=== PATIENT | female | born 1950 | race Caucasian/White ===

== ENCOUNTER → 2016-08-01 | Outpatient (CLI) | payer OTHER, MEDICARE ==
[~2016-08-01] MED LIST: B-COCAP2 PO; CALC600T37 PO; ESTR1CRE; FLNIN NAE; MULT-506 PO; Magnesium PO; Vitamin D3 PO; Zinc PO
== END | disposition home or self-care (01) ==
LOC: C.PAPS 11:55
PROVIDERS: ATTEND Obstetrics & Gynecology
DX: Z01.419 Encounter for gynecological examination (general) (routine) without abnormal findings (principal); R87.610 Atypical squamous cells of undetermined significance on cytologic smear of cervix (ASC-US)

== ENCOUNTER → 2017-03-17 | Outpatient (CLI) | payer OTHER, MEDICARE ==
[2017-03-17 10:58] LABS: BASO % 0.4 %; BASO ABS # 0.02 K/uL (0-0.2); COMPLETE YES; EOS % 4.6 %; HEMATOCRIT 41.4 % (37-47); IG% 0.2 %; LYMPH % 31.1 %; LYMPH ABS # 1.48 K/uL (1.2-3.4); MEAN CELL VOLUME 91.6 fL (80-100); MEAN CORPUSCULAR HEMOGLOBIN 31.2 pg (25-34); MEAN CORPUSCULAR HGB CONC 34.1 g/dl (32-36); MEAN PLATELET VOLUME 9.3 fL (7.4-10.4); MONO % 8.2 %; NEUT % 55.5 %; PLATELET COUNT 270 K/uL (130-400); RED BLOOD COUNT 4.52 M/uL (4.2-5.4); WHITE BLOOD COUNT 4.76 K/uL (4.8-10.8)
[2017-03-17 13:54] LABS: ALB/GLOB RATIO 1.1 (0.9-2); ALT/SGPT 33 U/L (12-78); AST/SGOT 23 U/L (15-37); BLOOD UREA NITROGEN 12 mg/dl (7-18); BUN/CREATININE RATIO 14.7 (10-20); CALCIUM 9.6 mg/dl (8.5-10.1); CARBON DIOXIDE 28 mmol/L (21-32); CHLORIDE 105 mmol/L (98-107); CREATININE 0.81 mg/dl (0.60-1.20); GLUCOSE 95 mg/dl (70-99); POTASSIUM 4.5 mmol/L (3.5-5.1); SODIUM 138 mmol/L (136-145)
[2017-03-17 14:04] LABS: ALKALINE PHOSPHATASE 70 U/L (45-117)
[2017-03-21 19:10] LABS: ALBUMIN 4.2 G/DL (3.8-4.8); FREE KAPPA 13.3 MG/L (3.3-19.4); FREE KAPPA/LAMBDA RATIO 0.89 (0.26-1.65); FREE LAMBDA 14.9 MG/L (5.7-26.3); GAMMA GLOBULIN 1.1 G/DL (0.8-1.7); IMMUNOFIXATION IGA SERUM 119 MG/DL (81-463); IMMUNOFIXATION IGG SERUM 1211 MG/DL (694-1618); IMMUNOFIXATION IGM SERUM 163 MG/DL (48-271); MONOCLONAL PROTEIN BAND 1 0.7 G/DL (NOT DETECTED)
== END | disposition home or self-care (01) ==
LOC: C.LABBC 09:09
PROVIDERS: ATTEND Internal Medicine Hematology & Oncology
DX: D47.2 Monoclonal gammopathy (principal)

== ENCOUNTER → 2017-06-06 | Outpatient (CLI) | payer OTHER, MEDICARE ==
--- NOTE | 2017-06-09 08:13 | MAMMOGRAPHY REPORT ---
BILATERAL DIGITAL SCREENING MAMMOGRAM TOMOSYNTHESIS WITH CAD: 06/06/2017 CLINICAL HISTORY: Routine screening. Patient has no complaints. TECHNIQUE: Breast tomosynthesis in addition to standard 2D mammography was performed. Current study was also evaluated with a Computer Aided Detection (CAD) system. COMPARISON: Comparison is made to exams dated: 04/01/2016 mammogram, 03/31/2015 mammogram, 03/25/2014 ma mmogram, 03/20/2013 mammogram, 02/13/2012 mammogram, and 02/07/2012 mammogram - [facility] ter. BREAST COMPOSITION: There are scattered areas of fibroglandular density in both breasts. FINDINGS: The parenchymal pattern is unchanged. No developing mass, architectural distortion or clus ter of suspicious microcalcifications is seen in either breast. IMPRESSION: ACR BI-RADS CATEGORY 2: BENIGN There is no mammographic evidence of malignancy. A 1 year screening mammogram is recommended. The pa tient will receive written notification of the results. Approximately 10% of breast cancers are not detected with mammography. A negative mammographic report should not delay biopsy if a clinically suggestive mass is present. Imelda England M.D. ay/:06/06/2017 15:36:18 Position Classification Manager: Elizabet Moulton, [facility] letter sent: Normal 1/2 BI-RADS Code: ACR BI-RADS Category 2: Benign
== END | disposition home or self-care (01) ==
LOC: C.MAMM 13:23
PROVIDERS: ATTEND Obstetrics & Gynecology
DX: Z12.31 Encounter for screening mammogram for malignant neoplasm of breast (principal)

== ENCOUNTER → 2017-10-05 | Outpatient (CLI) | payer OTHER, MEDICARE | END | disposition home or self-care (01) | LOC: C.PAPS 08:18 | PROVIDERS: ATTEND Obstetrics & Gynecology | DX: Z91.89 Other specified personal risk factors, not elsewhere classified (principal); N89.3 Dysplasia of vagina, unspecified; N90.3 Dysplasia of vulva, unspecified ==

== ENCOUNTER 2022-11-05 07:22 | Inpatient (IN) ==
[2022-11-05] MEDS ORDERED: SODIUM CHLORIDE 0.9% 1000ML 1,000 ML IV STA (08:02)
[2022-11-05 08:25] LABS: Basophils # (auto) 0.04 K/uL (0-0.2); Basophils % (auto) 0.4 %; Eosinophils # (auto) 0.03 K/uL (0-0.50); Eosinophils % (auto) 0.3 %; Hemoglobin 13.9 g/dl (12.0-16.0); Immature Granulocytes # (auto) 0.03 K/uL (0.01-0.20); Immature Granulocytes % (auto) 0.3 %; Lymphocytes # (auto) 0.84 K/uL (1.2-3.4); Mean Corpuscular Hemoglobin 31.2 pg (25.0-34.0); Mean Corpuscular Hgb Conc 33.9 g/dL (32.0-36.0); Mean Corpuscular Volume 92.1 fL (80.0-100.0); Mean Platelet Volume 9.3 fL (9.4-12.4); Monocytes # (auto) 0.28 K/uL (0.11-0.59); Monocytes % (auto) 2.7 %; Neutrophils # (auto) 9.28 K/uL (1.40-6.50); Neutrophils % (auto) 88.3 %; Platelet Count 269 K/uL (130-400); RDW Coefficient of Variation 12.7 % (11.5-14.5); RDW Standard Deviation 43.4 fL (36.4-46.3); Red Blood Count 4.45 M/uL (4.20-5.40)
[2022-11-05 08:31] LABS: Albumin Globulin Ratio 1.4 (0.9-2); Albumin Level 4.3 gm/dl (3.4-5.0); BUN Creatinine Ratio 20.7 (10-20); Bilirubin,Total 0.7 mg/dl (0.2-1.0); Calcium 9.4 mg/dl (8.6-10.3); Creatinine Clr Calc Pharmacy 55.8 ml/min; Est GFR (African American) 82.9 ml/min; Est GFR (Non-African American) 71.5 ml/min; Total Protein 7.3 gm/dl (6.0-8.3)
[2022-11-05] MEDS ORDERED: MoRPHine SULFATE 4 MG/ML 1 ML CARP\\VIAL IV STA (08:44)
[2022-11-05] MEDS ORDERED: ONDANSETRON INJ 2 MG/ML 2 ML VIAL IV STA ×2 (08:50→16:08)
--- NOTE | 2022-11-05 08:56 | Emergency Department Note ---
Impression & Plan Abdominal pain, Partial obstruction of small intestine ED Provider Note INFORMANT: Patient ED PROVIDER(S): Uche Nelson DO CHIEF COMPLAINT: Abdominal pain PLAN: Disposition: Admission Outpatient prescription management: none Discussion with: I spoke with the hospitalist, who will see the patient for admission/observation and further evaluation and consultation. MEDICAL DECISION MAKING: This is a 72-year-old female who presents to the ED with a chief complaint of abdominal pain. The patient states that her pain started at 205 this morning. She states that she had some associated nausea and dry heaves. The pain initially started in the epigastric area but now seems to be all over. She also complains of some mid back pain associated with her symptoms that started around the same time. The patient states that she is unable to move because the pain is so severe with movement. She states that she does have a history of diarrhea since May. She is scheduled to have a colonoscopy on Monday. Denies any fevers. No chest pains or shortness of breath. No urinary symptoms. Her vital signs reveal hypertension. Physical exam reveals mild diffuse abdominal tenderness. No palpable masses. No rebound lungs are clear. Heart is regular rate and rhythm. The rest of the exam was unremarkable. Denies any previous abdominal surgical procedures. The patient's CBC did not show leukocytosis or anemia. Chemistry panel showed no electrolyte abnormality. Normal kidney function. Normal liver function. Normal kidney function. Lipase was negative for pancreatitis troponin was negative. EKG shows normal sinus rhythm without ischemic change. Chest x-ray was negative for acute disease. CT scan of the abdomen pelvis shows a partial small bowel obstruction versus enteritis. The patient will be seen by the hospitalist for further evaluation and care Triage Nursing notes reviewed. Vital Signs: reviewed Prior /Outside records reviewed: [none] Differential diagnosis: Differential considered: pancreatitis, hepatitis, acute cholecystitis, AAA, UTI, pyelonephritis, kidney stones, appendicitis, diverticulitis, shingles, bowel obstruction, mesenteric ischemia, intussusception,hernia, bowel perforation other Diagnostics, as interpreted by me: 12 lead ECG: Normal sinus rhythm 72. No ST elevation. No PVCs. Normal QTc Cardiac Monitoring ordered: Normal sinus rhythm in the 70s Medical decision rules: [none] Imaging studies: CT scan of the abdomen pelvis: Partial small bowel obstruction. Chest x-ray: No acute disease. No pneumonia Procedures: none. Critical care: none. HPI: See MDM above. PAST MEDICAL HISTORY: See Below PAST SURGICAL HISTORY: See Below SOCIAL HISTORY: See Below HOME MEDICATIONS: See Below ALLERGIES: See Below VITALS: See Below PHYSICAL EXAMINATION: See MDM for positive findings otherwise unremarkable. CONSTITUTIONAL/VITAL SIGNS: Reviewed GENERAL:done as appropriate INTEGUMENTARY: done as appropriate HEAD: done as appropriate EYES: done as appropriate RESPIRATORY: done as appropriate CARDIOVASCULAR:done as appropriate GI/ABDOMEN:done as appropriate EXTREMITIES: done as appropriate NEUROLOGICAL: done as appropriate PSYCHIATRIC:done as appropriate MUSCULOSKELETAL:done as appropriate TRIAGE NURSING DOCUMENTATION REVIEWED. 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) Unsure what level dinorah is Surgical History H/O repair of rotator cuff LEFT H/O wisdom tooth extraction History of colonoscopy History of conization of cervix History of dilation and curettage History of removal of cyst History of tubal ligation Family History Grandmother (Maternal) Myocardial infarction Mother Carpal tunnel syndrome Diabetes H/O mitral valve replacement Father Emphysema, unspecified Family history of diverticulitis of colon Brother Prostate cancer Glaucoma Asthma Uncle Skin cancer paternal Uncle Diabetes Bladder cancer paternal Aunt Diabetes Other Heart disease Osteoporosis Denies family history of Ovarian cancer Clotting disorder Breast cancer Hypertension Stroke Social History Smoking Status: Former smoker Second Hand Exposure: Yes (HX GROWING UP); Hx Alcohol Use: Yes Alcohol type: beer Hx Substance Use: No Preferred Language: Bhutanese Communication Ability: Effective X Ray Operator Required: No Beliefs That Will Affect Care: None marital status: Current Living Situation: Spouse current occupational status: retired Feels Safe at Home: Yes Childhood Exposure to Second-Hand Smoke: No Assistive Devices: Glasses Allergies Allergies Allergy/AdvReac Type Severity Reaction Status Date / Time latex Allergy Unknown WITH Verified 10/31/22 08:11 PROLONGED USE - SKIN IRRITATION levofloxacin [From Levaquin] AdvReac Unknown THRUSH IN Verified 10/31/22 08:11 THE MOUTH Home Meds Home Medications Medication Instructions Recorded Confirmed fluticasone propionate 50 2 sprays intranasal UD PRN allergy 04/08/19 10/31/22 mcg/actuation nasal symptoms spray,suspension (Allergy Relief (fluticasone)) multivitamin (Daily Multi-Vitamin 1 tab PO QPM 04/08/19 10/31/22 tablet) calcium 600 mg capsule 600 mg PO BID 10/07/20 10/31/22 cholecalciferol (vitamin D3) 50 50 mcg PO QPM 10/07/20 10/31/22 mcg (2,000 unit) capsule (Vitamin D3) glucosamine-chondroitin 250 mg-200 1 tab PO QAM 10/07/20 10/31/22 mg tablet (Osteo Bi-Flex) lysine 1,000 mg tablet 1,000 mg PO QAM 10/07/20 10/31/22 turmeric 400 mg capsule 450 mg PO QAM 10/07/20 10/31/22 vitamin B complex 1 cap PO QPM 10/07/20 10/31/22 zinc 50 mg capsule 50 mg PO QPM 10/07/20 10/31/22 naproxen sodium 220 mg tablet 220 mg PO QAM 10/31/22 10/31/22 (Aleve) Previous Rx's Medication Instructions Recorded conjugated estrogens 0.625 mg/gram 0.625 mg vaginal Q2D #30 grams 07/20/22 vaginal cream (Premarin) sodium sul 1.479 gram-potas ch See Rx Instructions PO .COMPLEX 10/25/22 0.188 gram-magnes sul 0.225 gram #24 tabs tablet (Sutab) Results & Data (ED) Vital Signs Vital Signs - 24 hr 11/05/22 07:25 11/05/22 07:49 11/05/22 08:05 Temperature 36.6 C Temperature Source Temporal Artery Scan Pulse Rate 84 Pulse Rate [Apical] 70 Pulse Rhythm [Apical] Pulse Strength [Apical] Respiratory Rate 18 Respiratory Effort / Characteristics Respiratory Depth Respiratory Pattern Blood Pressure 159/87 H Blood Pressure [Right Arm] 157/89 H Blood Pressure Mean 111 Blood Pressure Mean [Right Arm] 111 Blood Pressure Position [Right Arm] Pulse Oximetry 96 90 92 Oxygen Delivery Method Room Air Room Air Oxygen Flow Rate Sepsis Recent Fever Within 48 Hours No Sepsis New/Unexplained Change in Mental Status N/A Sepsis Action Taken by Nursing No Action Required 11/05/22 10:07 11/05/22 11:03 Temperature Temperature Source Pulse Rate Pulse Rate [Apical] 79 77 Pulse Rhythm [Apical] Regular Pulse Strength [Apical] Normal Respiratory Rate 20 Respiratory Effort / Characteristics Non-Labored Spontaneous Respiratory Depth Normal Respiratory Pattern Regular Blood Pressure Blood Pressure [Right Arm] 157/93 H 137/86 Blood Pressure Mean Blood Pressure Mean [Right Arm] 114 103 Blood Pressure Position [Right Arm] Sitting Pulse Oximetry 97 95 Oxygen Delivery Method Nasal Cannula Nasal Cannula Oxygen Flow Rate 2 2 Sepsis Recent Fever Within 48 Hours Sepsis New/Unexplained Change in Mental Status Sepsis Action Taken by Nursing Laboratory Data 11/05/22 07:41 11/05/22 07:41 Lab Results 11/05/22 11/05/22 Range/Units 07:41 07:41 WBC 10.50 (4.8-10.8) K/ul RBC 4.45 (4.20-5.40) M/uL Hgb 13.9 (12.0-16.0) g/dl Hct 41.0 (37.0-47.0) % MCV 92.1 (80.0-100.0) fL MCH 31.2 (25.0-34.0) pg MCHC 33.9 (32.0-36.0) g/dL RDW Std Deviation 43.4 (36.4-46.3) fL RDW Coeff of Veronika 12.7 (11.5-14.5) % Plt Count 269 (130-400) K/uL MPV 9.3 L (9.4-12.4) fL Immature Gran % (Auto) 0.3 % Neut % (Auto) 88.3 % Lymph % (Auto) 8.0 % Franklin % (Auto) 2.7 % Eos % (Auto) 0.3 % Baso % (Auto) 0.4 % Neut # (Auto) 9.28 H (1.40-6.50) K/uL Lymph # (Auto) 0.84 L (1.2-3.4) K/uL Franklin # (Auto) 0.28 (0.11-0.59) K/uL Eos # (Auto) 0.03 (0-0.50) K/uL Baso # (Auto) 0.04 (0-0.2) K/uL Immature Gran # (Auto) 0.03 (0.01-0.20) K/uL Sodium 136 (136-145) mmol/L Potassium 4.0 (3.5-5.1) mmol/L Chloride 103 (98-107) mmol/L Carbon Dioxide 26 (21-32) mmol/L Anion Gap 7 (3-11) BUN 17 (6-23) mg/dl Creatinine 0.82 (0.6-1.2) mg/dl Est Cr Clr Drug Dosing 55.8 ml/min Est GFR ( Amer) 82.9 ml/min Est GFR (Non-Af Amer) 71.5 ml/min BUN/Creatinine Ratio 20.7 H (10-20) Glucose 142 H (70-99(Fasting)) mg/dl Calcium 9.4 (8.6-10.3) mg/dl Total Bilirubin 0.7 (0.2-1.0) mg/dl AST 21 (13-39) U/L ALT 20 (7-52) U/L Alkaline Phosphatase 57 (34-104) U/L Troponin I High Sens 6.8 (0-14) pg/ml Total Protein 7.3 (6.0-8.3) gm/dl Albumin 4.3 (3.4-5.0) gm/dl Globulin 3.0 (2.5-4.0) gm/dl Albumin/Globulin Ratio 1.4 (0.9-2) Lipase 18 (11-82) U/L Administered Medications Discontinued Medications Sodium Chloride (Nss 1000ml) 1,000 mls @ 999 mls/hr IV .Q1H1M STA Stop: 11/05/22 09:02 Last Infusion: 11/05/22 09:43 Dose: 0 mls/hr Documented By: Admin: 11/05/22 08:37 Dose: 999 mls/hr Documented By: ANN Ioversol (Optiray 350 100ml) 89 ml IV ONCE ONE Stop: 11/05/22 09:55 Last Admin: 11/05/22 09:56 Dose: 89 ml Documented By: ROJAS Morphine Sulfate (Morphine Sulfate 4 Mg/Ml 1 Ml Carp\Vial) 4 mg IV NOW STA Stop: 11/05/22 08:45 Last Admin: 11/05/22 08:48 Dose: 4 mg Documented By: ANN Ondansetron HCl (Ondansetron Inj 2 Mg/Ml 2 Ml Vial) 4 mg IV NOW STA Stop: 11/05/22 08:51 Last Admin: 11/05/22 08:52 Dose: 4 mg Documented By: ANN Imaging Data Radiologist's Impression: Abdomen/Pelvis CT 11/05/22 08:[address] WITH IV CONTRAST CT DOSE: 290.41 mGy.cm HISTORY: Acute generalized abdominal pain abd pain, epig diffuse TECHNIQUE: Multiaxial CT images of the abdomen and pelvis were performed following the IV administration of 89 cc of Optiray, A dose lowering technique was utilized adhering to the principles of ALARA. COMPARISON STUDY: Chest radiograph of same day FINDINGS: No acute process of the imaged lower chest. No pneumatosis or pneumoperitoneum. Unremarkable spleen, mildly atrophic pancreas, gallbladder and adrenal glands. Mild periportal edema with otherwise unremarkable appearance of the liver. Patent portal vein. Unremarkable kidneys. No hydronephrosis. Mild to moderate urinary bladder distention. Probable uterine fibroid, 1.5 cm within the fundus. No adnexal mass lesions. Atherosclerosis of the aorta without aneurysm. Atherosclerotic plaque at the origin of the inferior mesenteric artery. Indeterminate 1.2 cm soft tissue attenuating subcutaneous lesion of the left mons pubis. Colonic diverticulosis without acute diverticulitis. Normal appendix. Mildly di lated air and fluid-filled loops of small bowel measure up to 3 cm. Several loops of small bowel demonstrate circumferential wall thickening with interloop edema. Small volume of abdominal pelvic ascites. No discrete transition point identified. Initially, there are areas of mild large bowel wall thickening with partial distention. No acute fracture. Tarlov cyst of the upper sacrum. IMPRESSION: 1. Mild small bowel dilation with air-fluid levels, areas of circumferential wall thickening with interloop edema and small volume of abdominal pelvic ascites. No discrete transition point is identified. Constellation of findings suggestive of a partial small bowel obstruction versus a nonspecific enteritis. Close follow-up is recommended. 2. No pneumoperitoneum. 3. Colonic diverticulosis. 4. Normal appendix. 5. Additional findings as above. ACT 112: Negative or not required by law. The above report was generated using voice recognition software. It may contain grammatical, syntax or spelling errors. Electronically signed by: Antonio Julien M.D. 11/05/2022 10:37 AM Chest X-Ray 11/05/22 08:56 XR chest 1V portable HISTORY: 72 years-old Female abd pain . Acute chest and abdominal pain COMPARISON: Acute abdominal series radiographs 09/21/2015 TECHNIQUE: AP view of the chest FINDINGS: Cardiac mediastinal and hilar silhouettes are within normal limits. There is no pneumothorax, pleural effusion, airspace consolidation or pulmonary edema. Mild subsegmental bibasilar atelectasis versus scarring. Bones of the chest appear grossly intact. IMPRESSION: No acute process. ACT 112: Negative or not required by law. The above report was generated using voice recognition software. It may contain grammatical, syntax or spelling errors. Electronically signed by: Antonio Julien M.D. 11/05/2022 9:37 AM Discharge Plan Visit Data Chief Complaint: Abdominal Pain Stated Complaint: ABDOMINAL PAIN ED Provider: Uche Nelson Discharge Problem: Abdominal pain, Partial obstruction of small intestine Patient Disposition: Being Evaluated by Hospitalist Forms Stand Alone Forms: [facility] Prescriptions Prescriptions: No Action Premarin 0.625 mg/gram cream 0.625 mg PV Q2D Qty: 30 1RF Rx Instructions: Insert 1 gram vaginally twice weekly. Sutab 1.479-0.188- 0.225 gram tablet See Rx Instructions PO .COMPLEX Qty: 24 0RF Rx Instructions: TAKE FIRST DOSE AT 6 PM AND SECOND DOSE 6 HOURS PRIOR TO PROCEDURE BIN: [id number] PCN: CN GROUP: [id number] fluticasone propionate [Allergy Relief (fluticasone)] 50 mcg/actuation spray,suspension 2 sprays INTNAS UD PRN (Reason: allergy symptoms) multivitamin [Daily Multi-Vitamin] tablet 1 tab PO QPM cholecalciferol (vitamin D3) [Vitamin D3] 50 mcg (2,000 unit) Capsule 50 mcg PO QPM calcium 600 mg Capsule 600 mg PO BID lysine 1,000 mg Tablet 1,000 mg PO QAM vitamin B complex Capsule 1 cap PO QPM glucosamine-chondroitin [Osteo Bi-Flex] 250-200 mg Tablet 1 tab PO QAM zinc 50 mg Capsule 50 mg PO QPM turmeric 400 mg Capsule 450 mg PO QAM naproxen sodium [Aleve] 220 mg Tablet 220 mg PO QAM Referrals Referrals: Wiliam Harvey [Primary Care Provider] -
--- NOTE | 2022-11-05 09:38 | XRay Report ---
XR chest 1V portable HISTORY: 72 years-old Female abd pain . Acute chest and abdominal pain COMPARISON: Acute abdominal series radiographs 09/21/2015 TECHNIQUE: AP view of the chest FINDINGS: Cardiac mediastinal and hilar silhouettes are within normal limits. There is no pneumothorax, pleural effusion, airspace consolidation or pulmonary edema. Mild subsegmental bibasilar atelectasis versus scarring. Bones of the chest appear grossly intact. IMPRESSION: No acute process. ACT 112: Negative or not required by law. The above report was generated using voice recognition software. It may contain grammatical, syntax o r spelling errors. Electronically signed by: Antonio Julien M.D. 11/05/2022 9:37 AM
[2022-11-05] MEDS ORDERED: OPTIRAY 350 100ml IV ONE (09:54)
[2022-11-05 10:00] LABS: Troponin I High Sensitivity 6.8 pg/ml (0-14)
--- NOTE | 2022-11-05 10:39 | CT Scan Report ---
ABDOMEN AND PELVIS CT WITH IV CONTRAST CT DOSE: 290.41 mGy.cm HISTORY: Acute generalized abdominal pain abd pain, epig diffuse TECHNIQUE: Multiaxial CT images of the abdomen and pelvis were performed following the IV administrat ion of 89 cc of Optiray, A dose lowering technique was utilized adhering to the principles of ALARA. COMPARISON STUDY: Chest radiograph of same day FINDINGS: No acute process of the imaged lower chest. No pneumatosis or pneumoperitoneum. Unremarkabl e spleen, mildly atrophic pancreas, gallbladder and adrenal glands. Mild periportal edema with otherw ise unremarkable appearance of the liver. Patent portal vein. Unremarkable kidneys. No hydronephrosis . Mild to moderate urinary bladder distention. Probable uterine fibroid, 1.5 cm within the fundus. No adnexal mass lesions. Atherosclerosis of the aorta without aneurysm. Atherosclerotic plaque at the o rigin of the inferior mesenteric artery. Indeterminate 1.2 cm soft tissue attenuating subcutaneous le alida of the left mons pubis. Colonic diverticulosis without acute diverticulitis. Normal appendix. Mildly dilated air and fluid-fi lled loops of small bowel measure up to 3 cm. Several loops of small bowel demonstrate circumferentia l wall thickening with interloop edema. Small volume of abdominal pelvic ascites. No discrete transit ion point identified. Initially, there are areas of mild large bowel wall thickening with partial dis tention. No acute fracture. Tarlov cyst of the upper sacrum. IMPRESSION: 1. Mild small bowel dilation with air-fluid levels, areas of circumferential wall thickening with int erloop edema and small volume of abdominal pelvic ascites. No discrete transition point is identified . Constellation of findings suggestive of a partial small bowel obstruction versus a nonspecific ente ritis. Close follow-up is recommended. 2. No pneumoperitoneum. 3. Colonic diverticulosis. 4. Normal appendix. 5. Additional findings as above. ACT 112: Negative or not required by law. The above report was generated using voice recognition software. It may contain grammatical, syntax o r spelling errors. Electronically signed by: Antonio Julien M.D. 11/05/2022 10:37 AM
--- NOTE | 2022-11-05 11:42 | History & Physical Report ---
Date of Service November 05, 2022 Assessment & Plan (1) Abdominal pain: Plan: -Admit to med/surge -The patient is currently afebrile, hemodynamically stable, and stable on RA -At this time the patient's acute abd pain is most likely due to a partial SBO, but her CT could not rule out possible enteritis -Her history appears more consistent with SBO at this time as she took Imodium yesterday, which likely slowed her bowels to the point of an obstruction. -She may have had a more severe obstruction at the start of her symptoms -Would hold any antidiarrheals and NSAIDs at this time -Pain is currently controlled and she is without current nausea or vomiting, no need for NG tube, surgery or GI consult at this time -Will start on clear liquids, will give 1L LR for additional hydration, hold narcotics to avoid slowing her bowels and additional hypoxia -Will start with IV tylenol prn for pain, will hold additional antiemetics for now as her QTc is 483, can readdress is she becomes nauseous again -Has an upcoming colonoscopy next week with Dr. Naik -Will obtain mag level -BL SCD's and Sub-Q lovenox for DVT PPX -AM CBC, BMP, mag -Can likely be discharged home tomorrow on clears if she is feeling better (2) Hypoxia: Plan: -Was placed on 2L NC due to SpO2 of 90% on RA after receiving 4 mg IV morphine -Likely was the result of sedation with morphine and abd discomfort with deep inspiration -Lungs are clear and CXR is negative -DC'D O2, continue with incentive spirometry for now and monitor (3) Partial obstruction of small intestine: (4) Enteritis: Plan The patient was discussed with Dr. Barba at the time of the admission History of Present Illness Chief Complaint: Abd pain Primary Care Provider: Wiliam Norman is a 72 year old female with a history of chronic diarrhea who presented to the [facility] ED on 11/05 with a chief complaint of worsening abd pain. In the ED vitals were noted to be stable. No significant lab abnormalities were noted. CT of the abd/pelvis shows a partial SBO vs enteritis. We were asked to admit the patient for observation as she was not comfortable going home at this time. Prior to admission the patient was given 1L NSS, 4 mg IV morphine, and 4 mg IV zofran. At the time of the exam the patient was lying in bed in no acute distress with her sitting bedside. She states that she was in her typical state of health yesterday, but this includes non-bloody diarrhea that she has been experiencing since . She and her state that she has been trying to modify her diet to correct her diarrhea. She has cut out dairy, switched herself to a gluten fee diet, and stopped her magnesium, without resolution of her symptoms. He stool consistency will range from watery diarrhea to soft stool with vary degrees of caliber. Her last colonoscopy was in 2020, she had multiple polyps removed and was told that one was pre-cancerous. She has a upcoming colonoscopy scheduled for 11/[address] Naik. Yesterday, she and her went golfing so she took an Imodium to try and prevent any diarrhea. They went out to dinner and went to bed feeling well. She was woken around 0200 this am with severe central abdominal pain, she describes it as though someone was punching her in the abdomen. The pain initially radiated to her back but nowhere else. She was nauseous and had dry heaves. She did not take any medications prior to coming to the ED. At the time of the exam her pain is more generalized in the abdomen and less severe, approximately a 4/10. She is without current nausea or vomiting. The only surgery she has had in the past was a tubal ligation in the . Of note, she typically takes one tab of 220 mg Alieve daily. We discussed code status, she is a full code and would want her to make medical decisions for her if he could not make them herself. Please refer to Dr. Barba's attestation for any changes to the treatment plan Allergies Allergy/AdvReac Type Severity Reaction Status Date / Time latex Allergy Unknown WITH Verified 11/05/22 12:14 PROLONGED USE - SKIN IRRITATION levofloxacin [From Levaquin] AdvReac Unknown THRUSH IN Verified 11/05/22 12:14 THE MOUTH Home Medications Medication Instructions Recorded Confirmed Type fluticasone propionate 50 2 sprays intranasal UD PRN allergy 04/08/19 11/05/22 History mcg/actuation nasal symptoms spray,suspension (Allergy Relief (fluticasone)) multivitamin (Daily Multi-Vitamin 1 tab PO QPM 09/23/19 04/22/23 History tablet) calcium 600 mg capsule 600 mg PO BID 10/07/20 11/05/22 History cholecalciferol (vitamin D3) 50 50 mcg PO QPM 10/07/20 11/05/22 History mcg (2,000 unit) capsule (Vitamin D3) glucosamine-chondroitin 250 mg-200 1 tab PO QAM 10/07/20 11/05/22 History mg tablet (Osteo Bi-Flex) lysine 1,000 mg tablet 1,000 mg PO QAM 10/07/20 11/05/22 History turmeric 400 mg capsule 450 mg PO QAM 10/07/20 11/05/22 History vitamin B complex 1 cap PO QPM 10/07/20 11/05/22 History zinc 50 mg capsule 50 mg PO QPM 10/07/20 11/05/22 History conjugated estrogens 0.625 mg/gram 0.625 mg vaginal Q2D #30 grams 07/20/22 11/05/22 Rx vaginal cream (Premarin) sodium sul 1.479 gram-potas ch See Rx Instructions PO .COMPLEX 10/25/22 11/05/22 Rx 0.188 gram-magnes sul 0.225 gram #24 tabs tablet (Sutab) naproxen sodium 220 mg tablet 220 mg PO QAM 10/31/22 11/05/22 History (Aleve) 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) Unsure what level dinorah is Surgical History H/O repair of rotator cuff LEFT H/O wisdom tooth extraction History of colonoscopy History of conization of cervix History of dilation and curettage History of removal of cyst History of tubal ligation Family History Grandmother (Maternal) Myocardial infarction Mother Carpal tunnel syndrome Diabetes H/O mitral valve replacement Father Emphysema, unspecified Family history of diverticulitis of colon Brother Prostate cancer Glaucoma Asthma Uncle Skin cancer paternal Uncle Diabetes Bladder cancer paternal Aunt Diabetes Other Heart disease Osteoporosis Denies family history of Ovarian cancer Clotting disorder Breast cancer Hypertension Stroke Social History Smoking Status: Former smoker Smoking End Date: 1983; Second Hand Exposure: No; Hx Alcohol Use: Yes Alcohol type: beer and wine Hx Substance Use: No Preferred Language: Belarusian Communication Ability: Effective Telecommunication Tower Technician Required: No Beliefs That Will Affect Care: None marital status: Current Living Situation: Spouse current occupational status: retired Other Information That Helps Us Care for You: No Feels Safe at Home: Yes Safety Concerns: Feels Safe At This Time Childhood Exposure to Second-Hand Smoke: No Assistive Devices: Glasses Assistive Devices Comment: Removable upper and lower retainers HS. Physical Exam Physical Exam: Physical Exam: General: In no acute distress, stated age, well-nourished, good hygiene HEENT: Normocephalic, atraumatic, no scleral icterus, pupils around round, symmetrical, and reactive to light, moist mucus membranes, trachea midline, no thyromegaly Chest/Pulm: No respiratory distress, symmetrical chest expansion, clear breath sounds throughout Cardiac: RRR, no murmurs noted Abdomen: Negative for ascites and bruising, hypoactive bowel sounds, soft, mildly tender to palpation to the epigastric region without rebound tenderness Musculoskeletal: Symmetrical and without signs of acute trauma, upper and lower extremities with full ROM, no atrophy, spasticity, or flaccidity Extremities: Radial, dorsalis pedis, and posterior tibial pulses are intact and symmetrical, no edema noted in the BL LE's Skin: Warm, dry, no rashes , lesions, or scars noted Neuro: Alert and oriented to person, place, month, year, and president, no focal defects, CN II-XII tested and intact, no tremors noted Psych: No acute distress, calm and cooperative during the exam Results & Data Results & Data Vital Signs (Past 12 Hours) Vital Signs Temp Pulse Pulse Resp BP BP Pulse Ox 11/05/22 11:03 77 20 137/86 95 11/05/22 10:07 79 157/93 H 97 11/05/22 08:05 92 11/05/22 07:49 70 157/89 H 90 11/05/22 07:25 36.6 C 84 18 159/87 H 96 O2 Del Method O2 Flow Rate 11/05/22 11:03 Nasal Cannula 2 11/05/22 10:07 Nasal Cannula 2 11/05/22 08:05 Room Air 11/05/22 07:49 Room Air 11/05/22 07:25 Laboratory Results Abnormal lab results 11/05/22 11/05/22 Range/Units 07:41 07:41 MPV 9.3 L (9.4-12.4) fL Neut # (Auto) 9.28 H (1.40-6.50) K/uL Lymph # (Auto) 0.84 L (1.2-3.4) K/uL BUN/Creatinine Ratio 20.7 H (10-20) Glucose 142 H (70-99(Fasting)) mg/dl Diagnostic Findings Abdomen/Pelvis CT 11/05/22 08:[address] WITH IV CONTRAST CT DOSE: 290.41 mGy.cm HISTORY: Acute generalized abdominal pain abd pain, epig diffuse TECHNIQUE: Multiaxial CT images of the abdomen and pelvis were performed following the IV administration of 89 cc of Optiray, A dose lowering technique was utilized adhering to the principles of ALARA. COMPARISON STUDY: Chest radiograph of same day FINDINGS: No acute process of the imaged lower chest. No pneumatosis or pneumoperitoneum. Unremarkable spleen, mildly atrophic pancreas, gallbladder and adrenal glands. Mild periportal edema with otherwise unremarkable appearance of the liver. Patent portal vein. Unremarkable kidneys. No hydronephrosis. Mild to moderate urinary bladder distention. Probable uterine fibroid, 1.5 cm within the fundus. No adnexal mass lesions. Atherosclerosis of the aorta without aneurysm. Atherosclerotic plaque at the origin of the inferior mesenteric artery. Indeter minate 1.2 cm soft tissue attenuating subcutaneous lesion of the left mons pubis. Colonic diverticulosis without acute diverticulitis. Normal appendix. Mildly dilated air and fluid-filled loops of small bowel measure up to 3 cm. Several loops of small bowel demonstrate circumferential wall thickening with interloop edema. Small volume of abdominal pelvic ascites. No discrete transition point identified. Initially, there are areas of mild large bowel wall thickening with partial distention. No acute fracture. Tarlov cyst of the upper sacrum. IMPRESSION: 1. Mild small bowel dilation with air-fluid levels, areas of circumferential wall thickening with interloop edema and small volume of abdominal pelvic ascites. No discrete transition point is identified. Constellation of findings suggestive of a partial small bowel obstruction versus a nonspecific enteritis. Close follow-up is recommended. 2. No pneumoperitoneum. 3. Colonic diverticulosis. 4. Normal appendix. 5. Additional findings as above. ACT 112: Negative or not required by law. The above report was generated using voice recognition software. It may contain grammatical, syntax or spelling errors. Electronically signed by: Antonio Julien M.D. 11/05/2022 10:37 AM Chest X-Ray 11/05/22 08:56 XR chest 1V portable HISTORY: 72 years-old Female abd pain . Acute chest and abdominal pain COMPARISON: Acute abdominal series radiographs 09/21/2015 TECHNIQUE: AP view of the chest FINDINGS: Cardiac mediastinal and hilar silhouettes are within normal limits. There is no pneumothorax, pleural effusion, airspace consolidation or pulmonary edema. Mild subsegmental bibasilar atelectasis versus scarring. Bones of the chest appear grossly intact. IMPRESSION: No acute process. ACT 112: Negative or not required by law. The above report was generated using voice recognition software. It may contain grammatical, syntax or spelling errors. Electronically signed by: Antonio Julien M.D. 11/05/2022 9:37 AM ECG Additional Comments: Normal sinus rhythm Possible Left atrial enlargement Borderline ECG When compared with ECG of 16-APR-2012 15:23, Premature atrial complexes are no longer Present T wave inversion now evident in Anterior leads QT has lengthened Code Status & VTE Plan Code Status Full code VTE Prophylaxis Plan VTE Prophylaxis will be ordered: Yes Supervising Physician Co-Signing Physician Notes I personally saw and examined the patient. I verified all vásquez points and agree with Uche Barnett PA-C with the following exceptions and/or additions: 72 year old female presents to the ER with nausea, vomiting and abdominal pain O/E HS RRR, no murmurs, Chest CTAB, Abdo generalized pain, mostly over umbilicus, BS normal A/P SBO/enteritis - given ongoing abdominal pain will switch back to NPO, Iv fluids, NG tube if ongoing pain/nausea despite addition ondansetron and Toradol Diarrhea - ongoing for months, follow up colonoscopy ?recurrent partial bowel obstruction PG Care Time/CCT Total # of Minutes Spent Total Time Spent with Patient: Total time spent is greater than 50% in coordination of care (as documented) at patient's floor/unit and/or counseling patient: Coding [place] [address] INT INP/OBS CARE 2/55MIN Patient Type Established Medical Decision Making Moderate Complexity Diagnoses Abdominal pain R10.9 Hypoxia R09.02 Partial obstruction of small intestine K56.600 Enteritis K52.9
[2022-11-05] MEDS ORDERED: LACTATED RINGER'S 1,000 ML IV SCH (12:30)
[2022-11-05 12:44] LABS: Appearance Urine Clear (Clear); Bilirubin Urine Negative (Negative); Blood Urine Negative (Negative); Color Urine Dark Yellow; Glucose Urine UA Negative (Negative); Ketones Urine Trace (Negative); Leukocyte Esterase Urine Negative (Negative); Nitrite Urine Negative (Negative); Protein Urine Negative (Negative); Specific Gravity Urine 1.034 (1.000-1.030); Urobilinogen Urine Negative (Negative); pH Urine 6.5 (4.5-7.5)
--- NOTE | 2022-11-05 13:16 | Electrocardiogram Report ---
Test Reason : Blood Pressure : / mmHG Vent. Rate : 072 BPM Atrial Rate : 072 BPM P-R Int : 194 ms QRS Dur : 076 ms QT Int : 442 ms P-R-T Axes : 083 018 063 degrees QTc Int : 483 ms Normal sinus rhythm Possible Left atrial enlargement Borderline ECG When compared with ECG of 16-APR-2012 15:23, Premature atrial complexes are no longer Present T wave inversion now evident in Anterior leads QT has lengthened Confirmed by Ozzie Yi ([id number]) on 11/05/2022 1:15:54 PM Referred By: REFERRED SELF Confirmed By:Ozzie Yi
[2022-11-05] MEDS: ACETAMINOPHEN 1,000 MG/100 ML VIAL IV PRN (14:38)
[2022-11-05] MEDS: ENOXAPARIN INJ 40 MG/0.4 ML SYR SQ SCH (15:29)
[2022-11-05] MEDS ORDERED: MoRPHine SULFATE 2 MG/ML CARP IV STA (15:35)
[2022-11-05] MEDS ORDERED: ONDANSETRON INJ 2 MG/ML 2 ML VIAL IV PRN (16:07)
[2022-11-05] MEDS: FAMOTIDINE 20 MG in SYRINGE 3 ML IV SCH (17:09)
[2022-11-05] MEDS: KETOROLAC TROMETHAMINE 15 MG/ML VIAL IV PRN (18:35)
[2022-11-06] MEDS: LACTATED RINGER'S 1,000 ML IV SCH ×2 (00:22→13:30)
[2022-11-06 06:20] LABS: Hematocrit (blood only) 37.6 % (37.0-47.0); Hemoglobin 12.7 g/dl (12.0-16.0); Mean Corpuscular Hemoglobin 31.1 pg (25.0-34.0); Mean Corpuscular Hgb Conc 33.8 g/dL (32.0-36.0); Mean Corpuscular Volume 91.9 fL (80.0-100.0); Platelet Count 245 K/uL (130-400); RDW Coefficient of Variation 12.8 % (11.5-14.5); RDW Standard Deviation 43.2 fL (36.4-46.3); Red Blood Count 4.09 M/uL (4.20-5.40); White Blood Count 8.45 K/ul (4.8-10.8)
[2022-11-06 06:24] LABS: Calcium 8.8 mg/dl (8.6-10.3); Est GFR (African American) 92.3 ml/min; Est GFR (Non-African American) 79.6 ml/min; Potassium 3.8 mmol/L (3.5-5.1)
--- NOTE | 2022-11-06 08:53 | Hospitalist Progress Note ---
Date of Service November 06, 2022 Assessment & Plan (1) Abdominal pain: Plan: Patient presented with abdominal pain in setting of diarrhea since last fall. Upcoming colonoscopy. Appears patient had seen PCP in September and placed on Augmentin Patient reports taking Imodium for outing with to prevent diarrhea and had worsening abdominal pain requiring presentation to ER CTAP on admission w/ reported mild small bowel dilation with air-fluid levels, areas of circumferential wall thickening with interloop edema and small volume of abdominal pelvic ascites. No discrete transition point is identified. Constellation of findings suggestive of a partial small bowel obstruction versus a nonspecific enteritis. Close follow-up is recommended. No pneumoperitoneum. Colonic diverticulosis. Normal appendix. Lipase wnl. Lactic .8 UA w/o evidence for infection WBC wnl, afebrile Continue IVF, NPO Will repeat KUB for this morning/monitor on exam and see about advancing her to clear liquid diet to trial. She is ideally wanting to go home today however discussed ideally would like to advance diet slowly/monitor for any increased pain If any evidence for further SBO will consult surgery Ordered stool PCR//cdiff/Giardia testing given ongoing diarrhea and enteritis on imaging and recent abx use with Augmentin by PCP Pain control/antiemetics Lovenox SQ for DVT prophylaxis She has upcoming c-scope w/ Dr Case next week. Consider inpatient consult pending repeat evals (2) Hypoxia: Plan: SpO2 dropped to 90s after receiving IV morphine, likely result of sedation Continue incentive spirometer, CXR w/o acute process on RA 94% at present, no SOB reported (3) Partial obstruction of small intestine: Plan: possible, repeat KUB this morning if any evidence for obstruction will consult general surgery (4) Enteritis: Plan: check stool studies/giardia/cdiff as above Admission and Anticipated Discharge Date Admission Date: November 05, 2022 Supervising Physician Co-Signing Physician Notes The patient was not seen by me. The chart was reviewed. Case discussed with YUMIKO Brock. Agree with assessment and plan Subjective Eval this morning, passing gas. Less abdominal pain and reporting mild cramping. Was hopeful for d/c. However, discussed review of chart/worsening pain/possible SBO and would like to check KUB. She thought she had to have BM this morning but remembered they wanted a sample/needed a hat and hasn't gone. Being taken to KUB at present. No nausea/vomiting. She was hopeful for d/c today. Discussed if KUB resolved/no SBO can advance diet and if not having pain consider slow advancement at home as she has c-scope aranged for Monday with Dr Naik. Follows with Dr Harvey and has had stool testing, recent abx use with augmentin. Checking stool PCR/cdiff/giardia w/ next BM. Questions/concerns addressed at this time. Physical Exam Physical Exam: General: WD/WN female sitting up in bed, NAD HEENT: head normocephalic, atraumatic, mmm Resp: CTA, no w/c, on room air CV: RRR, no significant m/r/g GI: +BS throughout, soft, slightly tender to deep palpation around umbilicus : no [place] MSK/Neuro: no focal deficit Psych: AOx3, cooperative with care Results & Data Results & Data Vital Signs (Past 12 Hours) Vital Signs Temp Pulse Resp BP Pulse Ox O2 Del Method 11/06/22 07:42 36.7 C 71 18 101/65 94 Room Air Laboratory Results 11/06/22 11/06/22 11/05/22 Range/Units 05:48 05:48 15:55 WBC 8.45 (4.8-10.8) K/ul RBC 4.09 L (4.20-5.40) M/uL Hgb 12.7 (12.0-16.0) g/dl Hct 37.6 (37.0-47.0) % MCV 91.9 (80.0-100.0) fL MCH 31.1 (25.0-34.0) pg MCHC 33.8 (32.0-36.0) g/dL RDW Std Deviation 43.2 (36.4-46.3) fL RDW Coeff of Veronika 12.8 (11.5-14.5) % Plt Count 245 (130-400) K/uL MPV 9.0 L (9.4-12.4) fL Sodium 137 (136-145) mmol/L Potassium 3.8 (3.5-5.1) mmol/L Chloride 106 (98-107) mmol/L Carbon Dioxide 27 (21-32) mmol/L Anion Gap 4 (3-11) BUN 12 (6-23) mg/dl Creatinine 0.75 (0.6-1.2) mg/dl Est Cr Clr Drug Dosing 61.0 ml/min Est GFR ( Amer) 92.3 ml/min Est GFR (Non-Af Amer) 79.6 ml/min BUN/Creatinine Ratio 16.0 (10-20) Glucose 94 (70-99(Fasting)) mg/dl Lactate 0.8 (0.4-2.0) mmol/L Calcium 8.8 (8.6-10.3) mg/dl Magnesium 2.0 (1.7-2.4) mg/dl Troponin I High Sens (0-14) pg/ml Urine Color Urine Appearance (Clear) Urine pH (4.5-7.5) Ur Specific [place] (1.000-1.030) Urine Protein (Negative) Urine Glucose (UA) (Negative) Urine Ketones (Negative) Urine Blood (Negative) Urine Nitrite (Negative) Urine Bilirubin (Negative) Urine Urobilinogen (Negative) Ur Leukocyte Esterase (Negative) SARS-CoV-2, RNA, NAAT (NEGATIVE) 11/05/22 11/05/22 11/05/22 Range/Units 12:25 11:35 11:35 WBC (4.8-10.8) K/ul RBC (4.20-5.40) M/uL Hgb (12.0-16.0) g/dl Hct (37.0-47.0) % MCV (80.0-100.0) fL MCH (25.0-34.0) pg MCHC (32.0-36.0) g/dL RDW Std Deviation (36.4-46.3) fL RDW Coeff of Veronika (11.5-14.5) % Plt Count (130-400) K/uL MPV (9.4-12.4) fL Sodium (136-145) mmol/L Potassium (3.5-5.1) mmol/L Chloride (98-107) mmol/L Carbon Dioxide (21-32) mmol/L Anion Gap (3-11) BUN (6-23) mg/dl Creatinine (0.6-1.2) mg/dl Est Cr Clr Drug Dosing ml/min Est GFR ( Amer) ml/min Est GFR (Non-Af Amer) ml/min BUN/Creatinine Ratio (10-20) Glucose (70-99(Fasting)) mg/dl Lactate (0.4-2.0) mmol/L Calcium (8.6-10.3) mg/dl Magnesium 2.0 (1.7-2.4) mg/dl Troponin I High Sens (0-14) pg/ml Urine Color Dark Yellow Urine Appearance Clear (Clear) Urine pH 6.5 (4.5-7.5) Ur Specific [place] 1.034 H (1.000-1.030) Urine Protein Negative (Negative) Urine Glucose (UA) Negative (Negative) Urine Ketones Trace H (Negative) Urine Blood Negative (Negative) Urine Nitrite Negative (Negative) Urine Bilirubin Negative (Negative) Urine Urobilinogen Negative (Negative) Ur Leukocyte Esterase Negative (Negative) SARS-CoV-2, RNA, NAAT NEGATIVE (NEGATIVE) 11/05/22 Range/Units 07:41 WBC (4.8-10.8) K/ul RBC (4.20-5.40) M/uL Hgb (12.0-16.0) g/dl Hct (37.0-47.0) % MCV (80.0-100.0) fL MCH (25.0-34.0) pg MCHC (32.0-36.0) g/dL RDW Std Deviation (36.4-46.3) fL RDW Coeff of Veronika (11.5-14.5) % Plt Count (130-400) K/uL MPV (9.4-12.4) fL Sodium (136-145) mmol/L Potassium (3.5-5.1) mmol/L Chloride (98-107) mmol/L Carbon Dioxide (21-32) mmol/L Anion Gap (3-11) BUN (6-23) mg/dl Creatinine (0.6-1.2) mg/dl Est Cr Clr Drug Dosing ml/min Est GFR ( Amer) ml/min Est GFR (Non-Af Amer) ml/min BUN/Creatinine Ratio (10-20) Glucose (70-99(Fasting)) mg/dl Lactate (0.4-2.0) mmol/L Calcium (8.6-10.3) mg/dl Magnesium (1.7-2.4) mg/dl Troponin I High Sens 6.8 (0-14) pg/ml Urine Color Urine Appearance (Clear) Urine pH (4.5-7.5) Ur Specific [place] (1.000-1.030) Urine Protein (Negative) Urine Glucose (UA) (Negative) Urine Ketones (Negative) Urine Blood (Negative) Urine Nitrite (Negative) Urine Bilirubin (Negative) Urine Urobilinogen (Negative) Ur Leukocyte Esterase (Negative) SARS-CoV-2, RNA, NAAT (NEGATIVE) Diagnostic Findings Abdomen/Pelvis CT 11/05/22 08:[address] WITH IV CONTRAST CT DOSE: 290.41 mGy.cm HISTORY: Acute generalized abdominal pain abd pain, epig diffuse TECHNIQUE: Multiaxial CT images of the abdomen and pelvis were performed following the IV administration of 89 cc of Optiray, A dose lowering technique was utilized adhering to the principles of ALARA. COMPARISON STUDY: Chest radiograph of same day FINDINGS: No acute process of the imaged lower chest. No pneumatosis or pneumoperitoneum. Unremarkable spleen, mildly atrophic pancreas, gallbladder and adrenal glands. Mild periportal edema with otherwise unremarkable appearance of the liver. Patent portal vein. Unremarkable kidneys. No hydronephrosis. Mild to moderate urinary bladder distention. Probable uterine fibroid, 1.5 cm within the fundus. No adnexal mass lesions. Atherosclerosis of the aorta without aneurysm. Atherosclerotic plaque at the origin of the inferior mesenteric artery. Indeterminate 1.2 cm soft tissue attenuating subcutaneous lesion of the left mons pubis. Colonic diverticulosis without acute diverticulitis. Normal appendix. Mildly dilated air and fluid-filled loops of small bowel measure up to 3 cm. Several loops of small bowel demonstrate circumferential wall thickening with interloop edema. Small volume of abdominal pelvic ascites. No discrete transition point identified. Initially, there are areas of mild large bowel wall thickening with partial distention. No acute fracture. Tarlov cyst of the upper sacrum. IMPRESSION: 1. Mild small bowel dilation with air-fluid levels, areas of circumferential wall thickening with interloop edema and small volume of abdominal pelvic ascites. No discrete transition point is identified. Constellation of findings suggestive of a partial small bowel obstruction versus a nonspecific enteritis. Close follow-up is recommended. 2. No pneumoperitoneum. 3. Colonic diverticulosis. 4. Normal appendix. 5. Additional findings as above. ACT 112: Negative or not required by law. The above report was generated using voice recognition software. It may contain grammatical, syntax or spelling errors. Electronically signed by: Antonio Julien M.D. 11/05/2022 10:37 AM Chest X-Ray 11/05/22 08:56 XR chest 1V portable HISTORY: 72 years-old Female abd pain . Acute chest and abdominal pain COMPARISON: Acute abdominal series radiographs 09/21/2015 TECHNIQUE: AP view of the chest FINDINGS: Cardiac mediastinal and hilar silhouettes are within normal limits. There is no pneumothorax, pleural effusion, airspace consolidation or pulmonary edema. Mild subsegmental bibasilar atelectasis versus scarring. Bones of the chest appear grossly intact. IMPRESSION: No acute process. ACT 112: Negative or not required by law. The above report was generated using voice recognition software. It may contain grammatical, syntax or spelling errors. Electronically signed by: Antonio Julien M.D. 11/05/2022 9:37 AM PG Care Time/CCT Total # of Minutes Spent Total Time Spent with Patient: Total time spent is greater than 50% in coordination of care (as documented) at patient's floor/unit and/or counseling patient: Coding Level of Care Code 51294 SUB INP/OBS CARE 2/35MIN Diagnoses Abdominal pain R10.9 Hypoxia R09.02 Partial obstruction of small intestine K56.600 Enteritis K52.9
[2022-11-06] MEDS: ACETAMINOPHEN 1,000 MG/100 ML VIAL IV PRN (08:54)
[2022-11-06] MEDS: FAMOTIDINE 20 MG in SYRINGE 3 ML IV SCH (08:55)
--- NOTE | 2022-11-06 11:43 | XRay Report ---
KUB HISTORY: Acute generalized abdominal pain f/u COMPARISON: CT 11/05/2022 FINDINGS: No high-grade small bowel obstruction identified. Air is noted within both large and small bowel loops. Small bowel loops are mildly dilated measuring up to 3.4 cm which has improved from yest erday's exam. No renal calculi. No ureteral calculi. No pneumoperitoneum or pneumatosis. No fracture . IMPRESSION: No evidence of high-grade small bowel obstruction. There is decreased small bowel distention which ma y represent enteritis versus a partial obstruction. Continued follow-up recommended. ACT 112: Negative or not required by law. The above report was generated using voice recognition software. It may contain grammatical, syntax o r spelling errors. Electronically signed by: Antonio Julien M.D. 11/06/2022 11:42 AM
[2022-11-06] MEDS: KETOROLAC TROMETHAMINE 15 MG/ML VIAL IV PRN (13:37)
--- NOTE | 2022-11-06 13:59 | Surgery Consultation ---
Date of Consultation November 06, 2022 Assessment & Plan (1) Enteritis: Imaging and clincial exam are more consistent with enteritis than bowel obstruction. Would recommend stool cultures once she has a bowel movement. Reviewed that the treatment for most enteritis is supportive with hydration, antibiotics if bacterial source found. Should try to keep GI appt if possible. OK to advance diet to clear liquids. Discussed with YUMIKO Muñoz. Total time spent on reviewing chart, seeing patient, writing note and coordinating care was 32 minutes. (2) Abdominal pain: As her pain was epigastric and occurred after eating, it may be related to gallbladder disease. RUQ US was recommended and performed in between my visit with her and completion of the note. It is negative for gallbladder pathology. History of Present Illness Reason for Consultation: abdominal pain Requesting Physician: YUMIKO Muñoz Attending Physician: Jay Celaya MD History of Present Illness 72 yr old woman with diarrhea going on since admitted with abdominal pain which began later in the evening on Monday. Had gone out to eat (steak, mashed potatoes). Took immodium prior. Developed epigastric abdominal pain that radiated to her back, migrated in a band downwards towards central abdomen, moderate to severe in intensity. No other sick contacts but did not eat same thing. Had a bowel movement around 2:30 am early Sat morning. When this did not help and pain persisted, came to ER for evaluation. CT scan showed dilated large and small bowel, ? enteritis vs p SBO. Only prior abd operation was tubal ligation. Has colonoscopy scheduled on Mon with Dr. Naik. Stool cultures had been done months ago and were negative. Has not had a bowel movement since arriving in hospital. Passing flatus. Currently, no pain at rest. Is sore with a bruised sensation if central abdomen is pushed on. Allergies Allergy/AdvReac Type Severity Reaction Status Date / Time latex Allergy Unknown WITH Verified 11/05/22 12:14 PROLONGED USE - SKIN IRRITATION levofloxacin [From Levaquin] AdvReac Unknown THRUSH IN Verified 11/05/22 12:14 THE MOUTH Home Medications Medication Instructions Recorded Confirmed Type fluticasone propionate 50 2 sprays intranasal UD PRN allergy 04/08/19 11/05/22 History mcg/actuation nasal symptoms spray,suspension (Allergy Relief (fluticasone)) multivitamin (Daily Multi-Vitamin 1 tab PO QPM 04/08/19 11/05/22 History tablet) calcium 600 mg capsule 600 mg PO BID 10/07/20 11/05/22 History cholecalciferol (vitamin D3) 50 50 mcg PO QPM 10/07/20 11/05/22 History mcg (2,000 unit) capsule (Vitamin D3) glucosamine-chondroitin 250 mg-200 1 tab PO QAM 10/07/20 11/05/22 History mg tablet (Osteo Bi-Flex) lysine 1,000 mg tablet 1,000 mg PO QAM 10/07/20 11/05/22 History turmeric 400 mg capsule 450 mg PO QAM 10/07/20 11/05/22 History vitamin B complex 1 cap PO QPM 10/07/20 11/05/22 History zinc 50 mg capsule 50 mg PO QPM 10/07/20 11/05/22 History conjugated estrogens 0.625 mg/gram 0.625 mg vaginal Q2D #30 grams 07/20/22 11/05/22 Rx vaginal cream (Premarin) sodium sul 1.479 gram-potas ch See Rx Instructions PO .COMPLEX 10/25/22 11/05/22 Rx 0.188 gram-magnes sul 0.225 gram #24 tabs tablet (Sutab) naproxen sodium 220 mg tablet 220 mg PO QAM 10/31/22 11/05/22 History (Aleve) Patient History Medical History ASCUS favoring dysplasia Cystocele DENIES Dyspareunia Gynecological disorder PT DENIES GYNECOLOGICAL PROBLEMS History of thrush Hx of migraines IN HER 20'S 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) Unsure what level dinorah is Surgical History H/O repair of rotator cuff LEFT H/O wisdom tooth extraction History of colonoscopy History of conization of cervix History of dilation and curettage History of removal of cyst History of tubal ligation Family History Grandmother (Maternal) Myocardial infarction Mother Carpal tunnel syndrome Diabetes H/O mitral valve replacement Father Emphysema, unspecified Family history of diverticulitis of colon Brother Prostate cancer Glaucoma Asthma Uncle Skin cancer paternal Uncle Diabetes Bladder cancer paternal Aunt Diabetes Other Heart disease Osteoporosis Denies family history of Ovarian cancer Clotting disorder Breast cancer Hypertension Stroke Social History Smoking Status: Former smoker Smoking End Date: 1983; Second Hand Exposure: No; Hx Alcohol Use: Yes Alcohol type: beer and wine Hx Substance Use: No Preferred Language: Guatemalan Communication Ability: Effective Investment Executive Required: No Beliefs That Will Affect Care: None marital status: Current Living Situation: Spouse current occupational status: retired Other Information That Helps Us Care for You: No Feels Safe at Home: Yes Safety Concerns: Feels Safe At This Time Childhood Exposure to Second-Hand Smoke: No Assistive Devices: Glasses Assistive Devices Comment: Removable upper and lower retainers HS. Review of Systems Review of Systems: All systems reviewed & are unremarkable except as noted in HPI & below Physical Exam Constitutional: WD/WN, vitals as above Eyes: + anicteric sclerae ENMT: Ears: no hearing impairment and no external ear abnormality Neck: normal visual inspection and trachea midline Respiratory: normal respiratory effort, lungs clear to auscultation Cardiovascular: RRR, no murmur, no edema Gastrointestinal (Abdomen): normal bowel sounds, soft, nontender, no hepatosplenomegaly Musculoskeletal: Extremities: extremities normal to inspection Neurologic: awake; no focal motor deficits Psychiatric: A+Ox3, euthymic affect Results & Data Vital Signs (Past 12 Hours) Vital Signs Temp Pulse Resp BP Pulse Ox O2 Del Method 11/06/22 07:42 36.7 C 71 18 101/65 94 Room Air Laboratory Results 11/06/22 11/06/22 Range/Units 05:48 05:48 WBC 8.45 (4.8-10.8) K/ul RBC 4.09 L (4.20-5.40) M/uL Hgb 12.7 (12.0-16.0) g/dl Hct 37.6 (37.0-47.0) % MCV 91.9 (80.0-100.0) fL MCH 31.1 (25.0-34.0) pg MCHC 33.8 (32.0-36.0) g/dL RDW Std Deviation 43.2 (36.4-46.3) fL RDW Coeff of Veronika 12.8 (11.5-14.5) % Plt Count 245 (130-400) K/uL MPV 9.0 L (9.4-12.4) fL Sodium 137 (136-145) mmol/L Potassium 3.8 (3.5-5.1) mmol/L Chloride 106 (98-107) mmol/L Carbon Dioxide 27 (21-32) mmol/L Anion Gap 4 (3-11) BUN 12 (6-23) mg/dl Creatinine 0.75 (0.6-1.2) mg/dl Est Cr Clr Drug Dosing 61.0 ml/min Est GFR ( Amer) 92.3 ml/min Est GFR (Non-Af Amer) 79.6 ml/min BUN/Creatinine Ratio 16.0 (10-20) Glucose 94 (70-99(Fasting)) mg/dl Calcium 8.8 (8.6-10.3) mg/dl Magnesium 2.0 (1.7-2.4) mg/dl Diagnostic Findings ABDOMEN AND PELVIS CT WITH IV CONTRAST CT DOSE: 290.41 mGy.cm HISTORY: Acute generalized abdominal pain abd pain, epig diffuse TECHNIQUE: Multiaxial CT images of the abdomen and pelvis were performed following the IV administration of 89 cc of Optiray, A dose lowering technique was utilized adhering to the principles of ALARA. COMPARISON STUDY: Chest radiograph of same day FINDINGS: No acute process of the imaged lower chest. No pneumatosis or pneumoperitoneum. Unremarkable spleen, mildly atrophic pancreas, gallbladder and adrenal glands. Mild periportal edema with otherwise unremarkable appearance of the liver. Patent portal vein. Unremarkable kidneys. No hydronephrosis. Mild to moderate urinary bladder distention. Probable uterine fibroid, 1.5 cm within the fundus. No adnexal mass lesions. Atherosclerosis of the aorta without aneurysm. Atherosclerotic plaque at the origin of the inferior mesenteric artery. Indeterminate 1.2 cm soft tissue attenuating subcutaneous lesion of the left mons pubis. Colonic diverticulosis without acute diverticulitis. Normal appendix. Mildly dilated air and fluid-filled loops of small bowel measure up to 3 cm. Several loops of small bowel demonstrate circumferential wall thickening with interloop edema. Small volume of abdominal pelvic ascites. No discrete transition point identified. Initially, there are areas of mild large bowel wall thickening with partial distention. No acute fracture. Tarlov cyst of the upper sacrum. IMPRESSION: 1. Mild small bowel dilation with air-fluid levels, areas of circumferential wall thickening with interloop edema and small volume of abdominal pelvic ascites. No discrete transition point is identified. Constellation of findings suggestive of a partial small bowel obstruction versus a nonspecific enteritis. Close follow-up is recommended. 2. No pneumoperitoneum. 3. Colonic diverticulosis. 4. Normal appendix. 5. Additional findings as above. ACT 112: Negative or not required by law. ABDOMINAL ULTRASOUND, RIGHT UPPER QUADRANT HISTORY: Epigastric abdominal pain. COMPARISON: Abdominal ultrasound September 23, 2015. FINDINGS: There is no biliary ductal dilatation. No hepatic lesions are identified. The gallbladder is normal. There are no gallstones. There is no gallbladder wall thickening. No sonographic Sethi sign was elicited. Pancreas is unremarkable by sonography. There is no right hydronephrosis. IMPRESSION: No significant abnormality identified within the right upper quadrant.
[2022-11-06] MEDS: ENOXAPARIN INJ 40 MG/0.4 ML SYR SQ SCH (15:56)
--- NOTE | 2022-11-06 16:21 | Ultrasound Report ---
ABDOMINAL ULTRASOUND, RIGHT UPPER QUADRANT HISTORY: Epigastric abdominal pain. COMPARISON: Abdominal ultrasound September 23, 2015. FINDINGS: There is no biliary ductal dilatation. No hepatic lesions are identified. The gallbladder i s normal. There are no gallstones. There is no gallbladder wall thickening. No sonographic Sethi sig n was elicited. Pancreas is unremarkable by sonography. There is no right hydronephrosis. IMPRESSION: No significant abnormality identified within the right upper quadrant. ACT 112: Negative or not required by law. Electronically signed by: Mark Mcnamara M.D. 11/06/2022 4:20 PM
[2022-11-06 21:36] LABS: Adenovirus F 40/41 PCR Not Detected (NotDetected); Astrovirus PCR Not Detected (NotDetected); Campylobacter PCR Not Detected (NotDetected); Cryptosporidium PCR Not Detected (NotDetected); Cyclospora cayetanensis PCR Not Detected (NotDetected); Entamoeba histolytica PCR Not Detected (NotDetected); Enteroaggregative E.coli(EAEC) Not Detected (NotDetected); Enteropathogenic E.coli (EPEC) Not Detected (NotDetected); Enterotoxigenic E.coli (ETEC) Not Detected (NotDetected); Giardia lamblia PCR Not Detected (NotDetected); Norovirus GI/GII PCR Not Detected (NotDetected); Plesiomonas shigelloides PCR Not Detected (NotDetected); Rotavirus A PCR Not Detected (NotDetected); Salmonella PCR Not Detected (NotDetected); Sapovirus PCR Not Detected (NotDetected); Shiga-like Toxin E.coli (STEC) Not Detected (NotDetected); Shigella/Enteroinvasive E.coli Not Detected (NotDetected); Vibrio cholerae PCR Not Detected (NotDetected); Vibrio species PCR Not Detected (NotDetected); Yersinia enterocolitica PCR Not Detected (NotDetected)
[2022-11-07] MEDS: LACTATED RINGER'S 1,000 ML IV SCH (02:32)
[2022-11-07 07:52] LABS: Hematocrit (blood only) 34.7 % (37.0-47.0); Hemoglobin 11.5 g/dl (12.0-16.0); Mean Corpuscular Hemoglobin 30.7 pg (25.0-34.0); Mean Corpuscular Hgb Conc 33.1 g/dL (32.0-36.0); Mean Corpuscular Volume 92.8 fL (80.0-100.0); Platelet Count 205 K/uL (130-400); RDW Coefficient of Variation 12.5 % (11.5-14.5); RDW Standard Deviation 42.8 fL (36.4-46.3); Red Blood Count 3.74 M/uL (4.20-5.40)
[2022-11-07 08:06] LABS: BUN Creatinine Ratio 11.8 (10-20); Calcium 9.1 mg/dl (8.6-10.3); Creatinine Clr Calc Pharmacy 72.8 ml/min; Est GFR (African American) 101.3 ml/min; Est GFR (Non-African American) 87.4 ml/min; Magnesium 1.9 mg/dl (1.7-2.4); Potassium 3.8 mmol/L (3.5-5.1)
[2022-11-07] MEDS: FAMOTIDINE 20 MG in SYRINGE 3 ML IV SCH (09:03)
--- NOTE | 2022-11-07 10:02 | XRay Report ---
KUB HISTORY: Generalized abdominal pain. Diarrhea. follow up COMPARISON: KUB 11/06/2022. FINDINGS: Mild to moderate gaseous distention of the stomach which has progressed. A few borderline d ilated loops of small bowel within the midabdomen measuring up to 3.1 cm. This has improved in the in terval. There is gas and stool seen throughout the nondistended colon. Degenerative changes within th e hips again noted. Calcification within the left pelvis favors a phlebolith. No renal calculi. No u reteral calculi. No pneumoperitoneum or pneumatosis. IMPRESSION: 1. Mild to moderate gaseous distention of the stomach which has progressed. 2. A few borderline dilated gas-filled loops of small bowel within the abdomen which have improved. T his could represent an ileus or partial small bowel obstruction. ACT 112: Negative or not required by law. Electronically signed by: Baltazar Taylor M.D. 11/07/2022 10:00 AM
--- NOTE | 2022-11-07 10:21 | Hospitalist Progress Note ---
Date of Service November 07, 2022 Assessment & Plan (1) Abdominal pain: Plan: Patient presented with abdominal pain in setting of diarrhea since last fall. Upcoming colonoscopy. Appears patient had seen PCP in September and placed on Augmentin Patient reports taking Imodium for outing with to prevent diarrhea and had worsening abdominal pain requiring presentation to ER CTAP on admission w/ reported mild small bowel dilation with air-fluid levels, areas of circumferential wall thickening with interloop edema and small volume of abdominal pelvic ascites. No discrete transition point is identified. Constellation of findings suggestive of a partial small bowel obstruction versus a nonspecific enteritis. Close follow-up is recommended. No pneumoperitoneum. Colonic diverticulosis. Normal appendix. Lipase wnl. Lactic .8 UA w/o evidence for infection WBC wnl, afebrile Continue IVF, NPO Will repeat KUB for this morning/monitor on exam and see about advancing her to clear liquid diet to trial. She is ideally wanting to go home today however discussed ideally would like to advance diet slowly/monitor for any increased pain If any evidence for further SBO will consult surgery Ordered stool PCR//cdiff/Giardia testing given ongoing diarrhea and enteritis on imaging and recent abx use with Augmentin by PCP Pain control/antiemetics Lovenox SQ for DVT prophylaxis She has upcoming c-scope w/ Dr Case next week. Consider inpatient consult pending repeat evals (2) Hypoxia: Plan: SpO2 dropped to 90s after receiving IV morphine, likely result of sedation Continue incentive spirometer, CXR w/o acute process on RA 94% at present, no SOB reported (3) Partial obstruction of small intestine: Plan: possible, repeat KUB this morning if any evidence for obstruction will consult general surgery (4) Enteritis: Plan: check stool studies/giardia/cdiff as above Admission and Anticipated Discharge Date Admission Date: November 05, 2022 Subjective Patient was awake in bed this AM. She was tolerating clear liquids. She had KUB this AM revealing possible dilated distended stomach Results & Data Results & Data Vital Signs (Past 12 Hours) Vital Signs Temp Pulse Resp BP Pulse Ox O2 Del Method 11/07/22 07:49 36.8 C 74 16 130/75 94 Room Air Diagnostic Findings KUB X-Ray 11/07/22 07:00 KUB HISTORY: Generalized abdominal pain. Diarrhea. follow up COMPARISON: KUB 11/06/2022. FINDINGS: Mild to moderate gaseous distention of the stomach which has progressed. A few borderline dilated loops of small bowel within the midabdomen measuring up to 3.1 cm. This has improved in the interval. There is gas and stool seen throughout the nondistended colon. Degenerative changes within the hips again noted. Calcification within the left pelvis favors a phlebolith. No renal calculi. No ureteral calculi. No pneumoperitoneum or pneumatosis. IMPRESSION: 1. Mild to moderate gaseous distention of the stomach which has progressed. 2. A few borderline dilated gas-filled loops of small bowel within the abdomen which have improved. This could represent an ileus or partial small bowel obstruction. ACT 112: Negative or not required by law. Electronically signed by: Baltazar Taylor M.D. 11/07/2022 10:00 AM PG Care Time/CCT Total # of Minutes Spent Total Time Spent with Patient: Total time spent is greater than 50% in coordination of care (as documented) at patient's floor/unit and/or counseling patient: Coding Diagnoses Abdominal pain R10.9 Hypoxia R09.02 Partial obstruction of small intestine K56.600 Enteritis K52.9
--- NOTE | 2022-11-07 11:44 | Gastrointestinal Consultation ---
Date of Consultation November 07, 2022 Assessment & Plan (1) Abdominal pain: (2) Abnormal x-ray of abdomen: Plan Given the imaging and history of chronic diarrhea, suspect constipation with overflow diarrhea which was exacerbated to ileus with use of Imodium. Less likely an acute enteritis. Despite this, will await stool studies to exclude enteric pathogens. Patient can be started on clear liquids and should remain only on clears for now. Proceed with bowel preparation tomorrow night unless returning abdominal pain. Colonoscopy as scheduled with Dr. Naik on Monday. Continue supportive care per primary team. Thank you for allowing us to participate in the care of this patient. If you have any questions or concerns, please do not hesitate to contact us. History of Present Illness Reason for Consultation: Abnormal KUB Requesting Physician: Yani Cummings PA-C Attending Physician: Nicolas Nelson History of Present Illness Ester Ruiz is a very pleasant 72 y.o. female with a history of colonic polyps admitted with abdominal pain that began suddenly one day GLASS TINTER. She reports the pain was severe and associated with nausea. States she induced vomiting and was having dry heaves. Reports associated bloating and flatus as well. KUB on arrival with evidence of dilated bowel loops consistent with PSBO. She has been kept NPO and repeat KUB this morning was with findings as follows: "1. Mild to moderate gaseous distention of the stomach which has progressed. 2. A few borderline dilated gas-filled loops of small bowel within the abdomen which have improved. This could represent an ileus or partial small bowel obstruction." In regard to symptoms, she reports improved abdominal pain. Has passed some loose stool this morning. No overt GIB. Continues with bloating. Is scheduled for colonoscopy on Monday with Dr. Naik. Allergies Allergy/AdvReac Type Severity Reaction Status Date / Time latex Allergy Unknown WITH Verified 11/05/22 12:14 PROLONGED USE - SKIN IRRITATION levofloxacin [From Levaquin] AdvReac Unknown THRUSH IN Verified 11/05/22 12:14 THE MOUTH Home Medications Medication Instructions Recorded Confirmed Type fluticasone propionate 50 2 sprays intranasal UD PRN allergy 04/08/19 11/05/22 History mcg/actuation nasal symptoms spray,suspension (Allergy Relief (fluticasone)) multivitamin (Daily Multi-Vitamin 1 tab PO QPM 04/08/19 11/05/22 History tablet) calcium 600 mg capsule 600 mg PO BID 10/07/20 11/05/22 History cholecalciferol (vitamin D3) 50 50 mcg PO QPM 10/07/20 11/05/22 History mcg (2,000 unit) capsule (Vitamin D3) glucosamine-chondroitin 250 mg-200 1 tab PO QAM 10/07/20 11/05/22 History mg tablet (Osteo Bi-Flex) lysine 1,000 mg tablet 1,000 mg PO QAM 10/07/20 11/05/22 History turmeric 400 mg capsule 450 mg PO QAM 10/07/20 11/05/22 History vitamin B complex 1 cap PO QPM 10/07/20 11/05/22 History zinc 50 mg capsule 50 mg PO QPM 10/07/20 11/05/22 History conjugated estrogens 0.625 mg/gram 0.625 mg vaginal Q2D #30 grams 07/20/22 11/05/22 Rx vaginal cream (Premarin) sodium sul 1.479 gram-potas ch See Rx Instructions PO .COMPLEX 10/25/22 11/05/22 Rx 0.188 gram-magnes sul 0.225 gram #24 tabs tablet (Sutab) naproxen sodium 220 mg tablet 220 mg PO QAM 10/31/22 11/05/22 History (Aleve) Patient History Medical History ASCUS favoring dysplasia Cystocele DENIES Dyspareunia Gynecological disorder PT DENIES GYNECOLOGICAL PROBLEMS History of thrush Hx of migraines IN HER 20'S 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) Unsure what level dinorah is Surgical History H/O repair of rotator cuff LEFT H/O wisdom tooth extraction History of colonoscopy History of conization of cervix History of dilation and curettage History of removal of cyst History of tubal ligation Family History Grandmother (Maternal) Myocardial infarction Mother Carpal tunnel syndrome Diabetes H/O mitral valve replacement Father Emphysema, unspecified Family history of diverticulitis of colon Brother Prostate cancer Glaucoma Asthma Uncle Skin cancer paternal Uncle Diabetes Bladder cancer paternal Aunt Diabetes Other Heart disease Osteoporosis Denies family history of Ovarian cancer Clotting disorder Breast cancer Hypertension Stroke Social History Smoking Status: Former smoker Smoking End Date: 1983; Second Hand Exposure: No; Hx Alcohol Use: Yes Alcohol type: beer and wine Hx Substance Use: No Preferred Language: Sierra Leonean Communication Ability: Effective Counter Tender Required: No Beliefs That Will Affect Care: None marital status: Current Living Situation: Spouse current occupational status: retired Other Information That Helps Us Care for You: No Feels Safe at Home: Yes Safety Concerns: Feels Safe At This Time Childhood Exposure to Second-Hand Smoke: No Assistive Devices: Glasses Assistive Devices Comment: Removable upper and lower retainers HS. Review of Systems Review of Systems: All systems reviewed & are unremarkable except as noted in HPI & below Physical Exam Constitutional: WD/WN, vitals as above Eyes: EOM intact bilaterally Neck: normal appearance Respiratory: normal respiratory effort, lungs clear to auscultation Cardiovascular: Rate/Rhythm: regular rate and regular rhythm Heart Sounds: no gallop and no murmur Gastrointestinal (Abdomen): Inspection/Auscultation: + abdomen distended and normal bowel sounds Percussion/Palpation: abdomen soft; abdomen nontender, no guarding and abdomen not rigid Musculoskeletal: Extremities: no cyanosis no lower extremity edema Skin: no rashes, warm and dry Neurologic: moves all extremities Psychiatric: A+Ox3, euthymic affect Results & Data Vital Signs (Past 12 Hours) Vital Signs Temp Pulse Resp BP Pulse Ox O2 Del Method 11/07/22 07:49 36.8 C 74 16 130/75 94 Room Air PG Care Time/CCT Total # of Minutes Spent Total Time Spent with Patient: Total time spent is greater than 50% in coordination of care (as documented) at patient's floor/unit and/or counseling patient: Coding Level of Care Code 19912 INT INP/OBS CARE 3/75MIN Diagnoses Abdominal pain R10.9 Abnormal x-ray of abdomen R93.5
--- NOTE | 2022-11-07 13:02 | Discharge Summary ---
Date of Service November 07, 2022 Admission HPI Per Admitting Provider Ester is a 72 year old female with a history of chronic diarrhea who presented to the [facility] ED on 11/05 with a chief complaint of worsening abd pain. In the ED vitals were noted to be stable. No significant lab abnormalities were noted. CT of the abd/pelvis shows a partial SBO vs enteritis. We were asked to admit the patient for observation as she was not comfortable going home at this time. Prior to admission the patient was given 1L NSS, 4 mg IV morphine, and 4 mg IV zofran. At the time of the exam the patient was lying in bed in no acute distress with her sitting bedside. She states that she was in her typical state of health yesterday, but this includes non-bloody diarrhea that she has been experiencing since . She and her state that she has been trying to modify her diet to correct her diarrhea. She has cut out dairy, switched herself to a gluten fee diet, and stopped her magnesium, without resolution of her symptoms. He stool consistency will range from watery diarrhea to soft stool with vary degrees of caliber. Her last colonoscopy was in 2020, she had multiple polyps removed and was told that one was pre-cancerous. She has a upcoming colonoscopy scheduled for 11/[address] Naik. Yesterday, she and her went golfing so she took an Imodium to try and prevent any diarrhea. They went out to dinner and went to bed feeling well. She was woken around 0200 this am with severe central abdominal pain, she describes it as though someone was punching her in the abdomen. The pain initially radiated to her back but nowhere else. She was nauseous and had dry heaves. She did not take any medications prior to coming to the ED. At the time of the exam her pain is more generalized in the abdomen and less severe, approximately a 4/10. She is without current nausea or vomiting. The only surgery she has had in the past was a tubal ligation in the . Of note, she typically takes one tab of 220 mg Alieve daily. We discussed code status, she is a full code and would want her to make medical decisions for her if he could not make them herself. Please refer to Dr. Braba's attestation for any changes to the treatment plan Admission Exam Per Admitting Provider General:In no acute distress, stated age, well-nourished, good hygiene HEENT:Normocephalic, atraumatic, no scleral icterus, pupils around round, symmetrical, and reactive to light, moist mucus membranes, trachea midline, no thyromegaly Chest/Pulm:No respiratory distress, symmetrical chest expansion, clear breath sounds throughout Cardiac:RRR, no murmurs noted Abdomen:Negative for ascites and bruising, hypoactive bowel sounds, soft, mildly tender to palpation to the epigastric region without rebound tenderness Musculoskeletal:Symmetrical and without signs of acute trauma, upper and lower extremities with full ROM, no atrophy, spasticity, or flaccidity Extremities:Radial, dorsalis pedis, and posterior tibial pulses are intact and symmetrical, no edema noted in the BL LE's Skin:Warm, dry, no rashes , lesions, or scars noted Neuro:Alert and oriented to person, place, month, year, and president, no focal defects, CN II-XII tested and intact, no tremors noted Psych:No acute distress, calm and cooperative during the exam Principal Diagnosis Diarrhea, Ileus, Abdominal pain Discharge Exam Constitutional WD/WN, vitals as above Neck trachea midline, no thyromegaly Respiratory normal respiratory effort, lungs clear to auscultation Cardiovascular RRR, no murmur, no edema Gastrointestinal (Abdomen) Inspection/Auscultation: abdomen normal to inspection and normal bowel sounds; no abdominal edema and no significant pannus Percussion/Palpation: + abdomen tender and abdomen soft; no guarding, abdomen not rigid, no hepatosplenomegaly, no hepatomegaly and no abdominal mass Skin no rashes, warm and dry Neurologic PERRL, EOMI, accommodation nl, no face palsy, no dysarthria Psychiatric A+Ox3, euthymic affect Discharge Data Allergies Allergy/AdvReac Type Severity Reaction Status Date / Time latex Allergy Unknown WITH Verified 11/05/22 12:14 PROLONGED USE - SKIN IRRITATION levofloxacin [From Levaquin] AdvReac Unknown THRUSH IN Verified 11/05/22 12:14 THE MOUTH Consultations 11/05/22 11:50 ED Decision to Admit Stat 11/06/22 13:00 Consult General Surgery Routine 11/07/22 10:15 Consult Gastroenterology Routine Ordered Studies 11/05/22 08:44 CT abd pelvis IV con only Stat IMPRESSION: 1. Mild small bowel dilation with air-fluid levels, areas of circumferential wall thickening with interloop edema and small volume of abdominal pelvic ascites. No discrete transition point is identified. Constellation of findings suggestive of a partial small bowel obstruction versus a nonspecific enteritis. Close follow-up is recommended. 2. No pneumoperitoneum. 3. Colonic diverticulosis. 11/06/22 13:53 US abdomen limited Routine IMPRESSION: No significant abnormality identified within the right upper quadrant. Total Time Total Time Spent Total Time Spent (In Minutes): 45 Discharge Plan Discharge Items Patient Disposition: Home - Self-Care Reason For Visit: ABDOMINAL PAIN Discharge Diagnosis: diarrhea, ileus, abdominal pain Activity: Per Instructions section Weightbearing: Full weightbearing Non-emergency contact: Primary Care Provider and Special Service Representative Call non-emergency contact if: you have any medication questions and your symptoms worsen Follow-up/Referrals: Wiliam Harvey [Primary Care Provider] - Diet: Other - See Diet Comment Diet Comment: clear liquid diet and follow GI recommendations on prep for colonoscopy Addtl Attending Provider Instructions: you were admitted with abdominal pain and imaging revealed a possible ileus. Surgery and GI were consulted. You were initially nothing to eat and treated with IV fluids. Then advanced to clear liquids. You had some improvement in your sxs and preferred to prep at home for your scheduled colonoscopy Monday11/09/22. The majority of your stool studies were all negative a nd a few tests are still pending. Keep colonoscopy as scheduled for Monday11/09/22 and follow prep directions from GI. Pending Studies at Discharge: Yes Studies:: chromogranin and Giardia Stand-Alone Forms: [facility] Medications and DC Order Prescriptions: Continued Premarin 0.625 mg/gram cream 0.625 mg PV Q2D Qty: 30 1RF Rx Instructions: Insert 1 gram vaginally twice weekly. Sutab 1.479-0.188- 0.225 gram tablet See Rx Instructions PO .COMPLEX Qty: 24 0RF Patient Comments: Prep for coloscopy - Pt hasn't started yet. Rx Instructions: TAKE FIRST DOSE AT 6 PM AND SECOND DOSE 6 HOURS PRIOR TO PROCEDURE. Procedure scheduled for 11/09/22. BIN: [id number] PCN: CN GROUP: [id number] fluticasone propionate [Allergy Relief (fluticasone)] 50 mcg/actuation spray,suspension 2 sprays INTNAS UD PRN (Reason: allergy symptoms) multivitamin [Daily Multi-Vitamin] tablet 1 tab PO QPM cholecalciferol (vitamin D3) [Vitamin D3] 50 mcg (2,000 unit) Capsule 50 mcg PO QPM calcium 600 mg Capsule 600 mg PO BID lysine 1,000 mg Tablet 1,000 mg PO QAM vitamin B complex Capsule 1 cap PO QPM glucosamine-chondroitin [Osteo Bi-Flex] 250-200 mg Tablet 1 tab PO QAM zinc 50 mg Capsule 50 mg PO QPM turmeric 400 mg Capsule 450 mg PO QAM naproxen sodium [Aleve] 220 mg Tablet 220 mg PO QAM Discharge Orders: Discharge Order (Routine); Ordered 11/07/22 Ordered By: Yani Cummings Admission Data Admit Date/Time: 11/07/22 10:50 Attending Provider: Nicolas Nelson Admit Provider: Ulises Barba Primary Care Provider: Wiliam Harvey Other Providers: Ulises Barba ; Aishwarya Barcenas ; Garett Martinez ; Christ Naik ; Amna Nava ; Jael Lino ; Anay Jorge ; Tabitha Mares ; Jimi Alfaro ; Nile Mcmillan ; Luna Barcenas ; Ruthy Ortega ; Kostas Collins ; Lesly Donovan ; Luisa Rodriguez ; Rosina West ; Socorro Alanis ; Dav Molina ; Chicho Perez ; Noble Heath ; Freda Campbell ; Ladarius Grissom Jr Coding Level of Care Code 18135 INP/OBS DISCH >30 MIN Diagnoses
[2022-11-07] MEDS: ENOXAPARIN INJ 40 MG/0.4 ML SYR SQ SCH (15:00)
--- NOTE | 2022-11-07 16:36 | Surgery Progress Note ---
Date of Service November 07, 2022 PATIENT SEEN EARLY THIS MORNING Assessment & Plan (1) Enteritis: Plan: Imaging and clinical exam are more consistent with enteritis than bowel obstruction. KUB today showing mild to moderately distended stomach which has progressed but distended bowel loops slightly improved. (2) Abdominal pain: Plan: As her pain was epigastric and occurred after eating. RUQ US was recommended and performed and was negative for gallbladder pathology. Plan No surgical intervention required at this time Would continue conservative management and highly encouraged patient to keep colonoscopy as scheduled on Monday if possible. Discussed with medicine team. Would consider GI consult to follow-up on her upcoming colonoscopy and now imaging showing distended stomach? May benefit from upper GI vs SBFT? Discussed with Dr. sofia who agrees with above. Admission and Anticipated Discharge Date Admission Date: November 07, 2022 Supervising Physician Co-Signing Physician Notes Seen and examined the patient agree with above assessment plan. We will continue conservative management. No surgical intervention required at this time. Subjective feeling better today had multiple loose bowel movements last night no abdominal pain, some cramping no n,v tolerated clear liquids unsure why this is happening, loose stools since before . Physical Exam Constitutional: WD/WN, vitals as above cooperative and comfortable; no acute distress and not ill appearing Respiratory: normal respiratory effort; no respiratory distress Gastrointestinal (Abdomen): Inspection/Auscultation: + abdomen distended (mildly distended) and + hypoactive bowel sounds; + abnormal bowel sounds Percussion/Palpation: + abdomen tender (RLQ on deep palpation) and abdomen soft; no guarding and abdomen not rigid Skin: no rashes, warm and dry no jaundice Psychiatric: Orientation: alert and oriented x 3 Results & Data Vital Signs (Past 12 Hours) Vital Signs Temp Pulse Pulse Resp BP Pulse Ox O2 Del Method 11/07/22 14:49 36.8 C 75 74 16 130/75 94 11/07/22 07:49 36.8 C 74 16 130/75 94 Room Air Laboratory Results 11/07/22 11/07/22 11/07/22 Range/Units 07:32 07:32 07:32 WBC 5.00 (4.8-10.8) K/ul RBC 3.74 L (4.20-5.40) M/uL Hgb 11.5 L (12.0-16.0) g/dl Hct 34.7 L (37.0-47.0) % MCV 92.8 (80.0-100.0) fL MCH 30.7 (25.0-34.0) pg MCHC 33.1 (32.0-36.0) g/dL RDW Std Deviation 42.8 (36.4-46.3) fL RDW Coeff of Veronika 12.5 (11.5-14.5) % Plt Count 205 (130-400) K/uL MPV 9.0 L (9.4-12.4) fL Sodium 140 (136-145) mmol/L Potassium 3.8 (3.5-5.1) mmol/L Chloride 106 (98-107) mmol/L Carbon Dioxide 28 (21-32) mmol/L Anion Gap 6 (3-11) BUN 8 (6-23) mg/dl Creatinine 0.68 (0.6-1.2) mg/dl Est Cr Clr Drug Dosing 72.8 ml/min Est GFR ( Amer) 101.3 ml/min Est GFR (Non-Af Amer) 87.4 ml/min BUN/Creatinine Ratio 11.8 (10-20) Glucose 80 (70-99(Fasting)) mg/dl Calcium 9.1 (8.6-10.3) mg/dl Magnesium 1.9 (1.7-2.4) mg/dl Stl C. cayetanensis PCR (NotDetected) Stool Rotavirus A PCR (NotDetected) Stl Adenov F 40/41 PCR (NotDetected) Stool Astrovirus (PCR) (NotDetected) Stool Campylobacter PCR (NotDetected) Stl C. diff Tox B Gene (Neg) Stool Cryptosporidium PCR (NotDetected) Stl E.coli Shiga Tox PCR (NotDetected) Stl Enterotoxigenic E PCR (NotDetected) Stool EPEC (PCR) (NotDetected) Stool EAEC (PCR) (NotDetected) Stl E. histolytica PCR (NotDetected) Stool Giardia Lamblia PCR (NotDetected) Stool Salmonella PCR (NotDetected) Stool Sapovirus (PCR) (NotDetected) Stl P. shigelloides PCR (NotDetected) Stl Shigella/EIEC PCR (NotDetected) St Y.enterocolitica PCR (NotDetected) Stool Vibrio (PCR) (NotDetected) Stl Vibrio cholerae PCR (NotDetected) Stl Norovirus GI/GII PCR (NotDetected) Chromogranin A Pending Giardia Antigen 11/06/22 11/06/22 11/06/22 Range/Units 20:00 20:00 20:00 WBC (4.8-10.8) K/ul RBC (4.20-5.40) M/uL Hgb (12.0-16.0) g/dl Hct (37.0-47.0) % MCV (80.0-100.0) fL MCH (25.0-34.0) pg MCHC (32.0-36.0) g/dL RDW Std Deviation (36.4-46.3) fL RDW Coeff of Veronika (11.5-14.5) % Plt Count (130-400) K/uL MPV (9.4-12.4) fL Sodium (136-145) mmol/L Potassium (3.5-5.1) mmol/L Chloride (98-107) mmol/L Carbon Dioxide (21-32) mmol/L Anion Gap (3-11) BUN (6-23) mg/dl Creatinine (0.6-1.2) mg/dl Est Cr Clr Drug Dosing ml/min Est GFR ( Amer) ml/min Est GFR (Non-Af Amer) ml/min BUN/Creatinine Ratio (10-20) Glucose (70-99(Fasting)) mg/dl Calcium (8.6-10.3) mg/dl Magnesium (1.7-2.4) mg/dl Stl C. cayetanensis PCR Not Detected (NotDetected) Stool Rotavirus A PCR Not Detected (NotDetected) Stl Adenov F 40/41 PCR Not Detected (NotDetected) Stool Astrovirus (PCR) Not Detected (NotDetected) Stool Campylobacter PCR Not Detected (NotDetected) Stl C. diff Tox B Gene Negative Cdiff Gene (Neg) Stool Cryptosporidium PCR Not Detected (NotDetected) Stl E.coli Shiga Tox PCR Not Detected (NotDetected) Stl Enterotoxigenic E PCR Not Detected (NotDetected) Stool EPEC (PCR) Not Detected (NotDetected) Stool EAEC (PCR) Not Detected (NotDetected) Stl E. histolytica PCR Not Detected (NotDetected) Stool Giardia Lamblia PCR Not Detected (NotDetected) Stool Salmonella PCR Not Detected (NotDetected) Stool Sapovirus (PCR) Not Detected (NotDetected) Stl P. shigelloides PCR Not Detected (NotDetected) Stl Shigella/EIEC PCR Not Detected (NotDetected) St Y.enterocolitica PCR Not Detected (NotDetected) Stool Vibrio (PCR) Not Detected (NotDetected) Stl Vibrio cholerae PCR Not Detected (NotDetected) Stl Norovirus GI/GII PCR Not Detected (NotDetected) Chromogranin A Giardia Antigen Pending Diagnostic Findings KUB 11/07/2022 HISTORY: Generalized abdominal pain. Diarrhea. follow up COMPARISON: KUB 11/06/2022. FINDINGS: Mild to moderate gaseous distention of the stomach which has progressed. A few borderline dilated loops of small bowel within the midabdomen measuring up to 3.1 cm. This has improved in the interval. There is gas and stool seen throughout the nondistended colon. Degenerative changes within the hips again noted. Calcification within the left pelvis favors a phlebolith. No renal calculi. No ureteral calculi. No pneumoperitoneum or pneumatosis. IMPRESSION: 1. Mild to moderate gaseous distention of the stomach which has progressed. 2. A few borderline dilated gas-filled loops of small bowel within the abdomen which have improved. This could represent an ileus or partial small bowel obstruction.
== END 2022-11-07 15:27 | disposition home or self-care (01) | DRG 390 ==
LOC: 3W 07:22 → ED 07:22 → SUATTDRO 11:46 → 3W 14:10